=== PATIENT | female | born 1990 | race Caucasian/White ===

== ENCOUNTER 2023-11-13 16:21 | Emergency (ER) | payer BC ==
[~2023-11-13] VITALS: Ht 160 cm; Wt 54.0 kg
[2023-11-13 16:27] VITALS: O2SAT 100
[2023-11-13 17:04] LABS: BASOPHILS % 0.6 % (0.0-2.0); EOSINOPHILS % 0.2 % (0.0-5.0); HEMATOCRIT. 23.6 % (36.0-48.0); HEMOGLOBIN. 7.2 g/dL (12.0-16.0); LYMPHOCYTES % 18.4 % (20.0-50.0); MEAN CORPUSCULAR HEMOGLOBIN 19.6 pg (28.0-32.0); MEAN CORPUSCULAR HGB CONC 30.3 g/dL (31.0-37.0); MEAN CORPUSCULAR VOLUME 64.8 fL (81.0-99.0); MEAN PLATELET VOLUME 7.3 fl (7.4-10.4); MONOCYTES % 4.9 % (2.0-8.0); NEUTROPHILS % 75.9 % (40.0-76.0); PLATELET 795 x1000/uL (130-400); RED BLOOD CELL COUNT 3.65 mill/uL (4.2-5.4); RED CELL DISTRIBUTION WIDTH 18.2 % (11.6-14.6); WHITE BLOOD COUNT 8.6 x1000/uL (4.5-11.0)
[2023-11-13 17:08] LABS: CHLORIDE 108 mEq/L (98-107); POTASSIUM 4.1 mEq/L (3.5-5.1); SODIUM 137 mEq/L (136-145)
[2023-11-13 17:09] LABS: CARBON DIOXIDE 24 mEq/L (21-32)
[2023-11-13 17:10] LABS: CALCIUM 9.2 mg/dL (8.7-10.4)
[2023-11-13 17:14] LABS: CREATININE 0.5 mg/dL (0.6-1.0); GLUCOSE 93 mg/dL (70-105)
[2023-11-13 17:15] LABS: ADD RBC MORPHOLOGY YES; DIFFERENTIAL COMMENT 1; UREA NITROGEN BLOOD 6 mg/dL (9-23)
[2023-11-13 17:16] LABS: ALANINE AMINOTRANSFERASE 14 IU/L (10-49); ALBUMIN 4.1 g/dL (3.2-4.8); ASPARTATE AMINOTRANSFERASE 18 IU/L (<34)
[2023-11-13 17:17] LABS: BILIRUBIN TOTAL 0.2 mg/dL (0.1-1.0); PROTEIN TOTAL 6.5 g/dL (6.0-8.3)
[2023-11-13 17:18] LABS: BILIRUBIN DIRECT < 0.1 mg/dL (<=3.0)
[2023-11-13 18:23] LABS: ANISOCYTOSIS 1+; HYPOCHROMASIA 2+; MICROCYTOSIS 3+; OVALOCYTES 1+
[2023-11-13 18:25] LABS: PLATELET ESTIMATE MARKEDLY INCREASED
[2023-11-13 23:54] VITALS: BP 118/72; PULSE 79; RESP 19; TEMP 98.6
== END 2023-11-14 00:07 | disposition home or self-care (01) ==
LOC: ER 16:21 → EDSEX 16:21 → ER 11-14 00:07
DX: D64.9 Anemia, unspecified (principal)
CPT/HCPCS: 80076; 80048; 85025; 86850; 86900; 86901; 86920; 36415; 99285; Z7610 ×3; 36430; P9016

== ENCOUNTER 2023-12-11 11:07 | Emergency (ER) | payer BC ==
[~2023-12-11] VITALS: Ht 165.1 cm; Wt 60.0 kg
[2023-12-11 11:44] VITALS: TEMP 98.5; O2SAT 100
[2023-12-11 12:01] LABS: BASOPHILS % 0.8 % (0.0-2.0); EOSINOPHILS % 0.4 % (0.0-5.0); HEMATOCRIT. 25.9 % (36.0-48.0); LYMPHOCYTES % 17.4 % (20.0-50.0); MEAN CORPUSCULAR HEMOGLOBIN 20.2 pg (28.0-32.0); MEAN CORPUSCULAR VOLUME 65.2 fL (81.0-99.0); MEAN PLATELET VOLUME 7.3 fl (7.4-10.4); MONOCYTES % 5.8 % (2.0-8.0); NEUTROPHILS % 75.6 % (40.0-76.0); PLATELET 718 x1000/uL (130-400); RED BLOOD CELL COUNT 3.98 mill/uL (4.2-5.4); RED CELL DISTRIBUTION WIDTH 21.7 % (11.6-14.6); WHITE BLOOD COUNT 6.9 x1000/uL (4.5-11.0)
[2023-12-11 12:09] LABS: CHLORIDE 106 mEq/L (98-107); SODIUM 140 mEq/L (136-145)
[2023-12-11 12:10] LABS: CALCIUM 8.6 mg/dL (8.7-10.4); CARBON DIOXIDE 28 mEq/L (21-32)
[2023-12-11 12:13] LABS: DIFFERENTIAL COMMENT 1
[2023-12-11 12:14] LABS: ADD RBC MORPHOLOGY YES
[2023-12-11 12:15] LABS: CREATININE 0.5 mg/dL (0.6-1.0); GLUCOSE 91 mg/dL (70-105); UREA NITROGEN BLOOD 5 mg/dL (9-23)
[2023-12-11 13:23] LABS: ANISOCYTOSIS 3+; HYPOCHROMASIA 2+; MICROCYTOSIS 3+; PLATELET ESTIMATE INCREASED
[2023-12-11 14:24] VITALS: BP 134/66; PULSE 90; RESP 20
== END 2023-12-11 14:26 | disposition home or self-care (01) ==
LOC: ER 11:07
DX: D64.9 Anemia, unspecified (principal); R53.83 Other fatigue
CPT/HCPCS: 36415; 80048; 85025; 86850; 86900; 99283